=== PATIENT | female | born 2000 | race Two or more races ===

== ENCOUNTER 2020-12-01 11:54 | Emergency (ER) | payer OTHER ==
[~2020-12-01] VITALS: Ht 165.1 cm; Wt 57.6 kg
[2020-12-01] MEDS ORDERED: ADDERALL 10 MG10 MG (12:22)
[2020-12-01] MEDS ORDERED: ZESTRIL5 MG (12:22)
[2020-12-02] MEDS ORDERED: FLAGYL500MG PO (10:45)
[2020-12-02] MEDS ORDERED: LEVOFLOXACIN500 MG PO (10:46)
== END 2020-12-01 16:08 | disposition home or self-care (01) ==
LOC: ER 11:54
DX: N39.0 Urinary tract infection, site not specified (principal); A59.01 Trichomonal vulvovaginitis; N89.8 Other specified noninflammatory disorders of vagina

== ENCOUNTER 2020-12-02 10:23 | Emergency (ER) | payer OTHER ==
[~2020-12-02] VITALS: Ht 165.1 cm; Wt 57.6 kg
[~2020-12-02 10:23] MED LIST: ADDERALL 10 MG10 MG; ZESTRIL5 MG
[2020-12-02] MEDS ORDERED: FLAGYL500MG PO (10:45)
[2020-12-02] MEDS ORDERED: LEVOFLOXACIN500 MG PO (10:46)
== END 2020-12-02 12:20 | disposition home or self-care (01) ==
LOC: ER 10:23
DX: N39.0 Urinary tract infection, site not specified (principal); A59.01 Trichomonal vulvovaginitis

== ENCOUNTER → 2020-12-05 12:26 | Outpatient (CLI) | payer OTHER ==
[~2020-12-05 12:26] MED LIST changes: +FLAGYL500MG PO; +LEVOFLOXACIN500 MG PO
== END | disposition home or self-care (01) ==
LOC: LAB 12:26
PROVIDERS: ATTEND Obstetrics & Gynecology
DX: N39.0 Urinary tract infection, site not specified (principal)